=== PATIENT | female | born 1985 | race Caucasian/White ===

== ENCOUNTER 2017-03-16 08:28 | Emergency (ER) | payer OTHER ==
[2017-03-16 08:30] VITALS: BP 113/76
[2017-03-16] MEDS ORDERED: DEXAMETHASONE SOD PHOS 10 MG/ML VIAL PO ONE (09:15)
[2017-03-16] MEDS ORDERED: AMOX1TAB11 PO (09:27)
--- NOTE | 2017-03-16 09:28 | PHYS DOC ---
Past History Past Medical History: No Pertinent History Additional Past Surgical Histo: wisdom teeth Smoking: Non-smoker Alcohol Use: Occasionally Drug Use: None Adult General Chief Complaint Chief Complaint: SORE THROAT HPI HPI She is a pleasant 31-year-old otherwise healthy female with no major medical problems who presents with a sore throat for 3 days. Patient says that the sore throats gotten progressively worse right greater than left with no cough, subjective fevers and chills at home and body aches. Patient missed a sick contacts in the general public but no travel outside the country, no snuffbox, no change in voice, no neck stiffness. Patient denies any rash, headache, chest pain, shortness of breath or abdominal pain. Patient also denies any history of STDs or recent antibiotic use. Review of Systems Review of Systems Constitutional: She has had subjective fevers and chills but nothing more Eyes: Denies change in visual acuity, redness, or eye pain [] HENT: Denies nasal congestion patient does have a sore throat without change in voice Respiratory: Denies cough or shortness of breath [] Cardiovascular: No additional information not addressed in HPI [] GI: Denies abdominal pain, nausea, vomiting, bloody stools or diarrhea [] : Denies dysuria or hematuria [] Musculoskeletal: Denies back pain or joint pain [] Integument: Denies rash or skin lesions [] Neurologic: Denies headache, focal weakness or sensory changes [] Endocrine: Denies polyuria or polydipsia [] All other systems were reviewed and found to be within normal limits, except as documented in this note. Current Medications Current Medications Current Medications Medications (Trade) Dose Ordered Sig/Han Start Time Stop Time Status Last Admin Dose Admin Dexamethasone Sodium Phosphate (Decadron) 10 mg 1X ONCE 03/16/17 09:15 03/16/17 09:16 DC 03/16/17 09:14 10 MG Allergies Allergies Allergies Coded Allergies Type Severity Reaction Last Updated Verified No Known Drug Allergies 03/16/17 No Physical Exam Physical Exam Other vital signs recorded on the chart within normal limits. Constitutional: Well developed, well nourished, no acute distress, non-toxic appearance. [] HENT: Normocephalic, atraumatic, bilateral external ears normal, oropharynx moist, oral exudates noted on the right tonsillar pillar with mild hypertrophy no evidence of abscess or uvular edema, nose normal. [] Eyes: PERRLA, EOMI, conjunctiva normal, no discharge. [] Neck: Normal range of motion, no tenderness, supple, no stridor. Patient does have anterior cervical lymphadenopathy [] Cardiovascular:Heart rate regular rhythm, no murmur [] Lungs & Thorax: Bilateral breath sounds clear to auscultation [] Skin: Warm, dry, no erythema, no rash. [] Neurologic: Alert and oriented X 3, normal motor function, normal sensory function, no focal deficits noted. [] Psychologic: Affect normal, judgement normal, mood normal. [] EKG EKG [] Radiology/Procedures Radiology/Procedures [] Course & Med Decision Making Course & Med Decision Making Pertinent Labs and Imaging studies reviewed. (See chart for details) []Patient's rapid strep test is negative ,Centor criteria: The Centor criteria are a widely used and accepted clinical decision tool These criteria are: Tonsillar exudates Tender anterior cervical adenopathy Fever by history Absence of cough The likelihood of having GAS increases with the number of Centor criteria. However, the Centor criteria are most useful in identifying patients for whom neither microbiologic tests nor antimicrobial therapy are necessary. Patients with fewer than three (0 to 2) Centor criteria are unlikely to have GAS and, in general, should not receive either antibiotic treatment or diagnostic testing. Chest patient has a 3 of 4 of the center criteria I will treat her empirically with antibiotics despite having a negative rapid strep test. Patient has no evidence of abscess peritonsillar abscess, retropharyngeal abscess, Doni angina or uvular edema. She'll be placed on a course of amoxicillin and clavulanic acid and encouraged to use [id number] medications like Tylenol or Motrin discharge: I've spoken with the patient and/or caregivers. I've explained the patient's condition, diagnosis and treatment plan based on information available to me at this time. I've answered the patient's and/or caregivers questions and addressed any concerns. The patient and/or caregivers have a good understanding the patient's diagnosis, condition and treatment plan as can be expected at this point. Vital signs have been stabilized. The patient's condition is stable for discharge from the emergency department. The patient will pursue further outpatient evaluation with her primary care provider or other designated consulting physician as outlined in the discharge instructions. Patient and/or caregivers are agreeable to this plan of care and follow-up instructions have been explained in detail. The patient and/or caregivers have received these instructions in written format and expressed understanding of these discharge instructions. The patient and her caregivers are aware that if any significant change in condition or worsening of symptoms should prompt him to immediately return to this of the closest emergency department. If an emergent department is not readily available I would encourage him to call 911. Claudio Disclaimer Dragon Disclaimer This electronic medical record was generated, in whole or in part, using a voice recognition dictation system. Departure Departure: Impression: Primary Impression: Pharyngitis Disposition: HOME, SELF-CARE Condition: STABLE Referrals: NON,STAFF (PCP) Patient Instructions: Viral and Bacterial Pharyngitis Additional Instructions: please return for any new or increased symptoms. Please follow up in the next 24 hours with your PCP if your symptoms are not improved. Please return if you have any questions or concerns discharge: I've spoken with the patient and/or caregivers. I've explained the patient's condition, diagnosis and treatment plan based on information available to me at this time. I've answered the patient's and/or caregivers questions and addressed any concerns. The patient and/or caregivers have a good understanding the patient's diagnosis, condition and treatment plan as can be expected at this point. Vital signs have been stabilized. The patient's condition is stable for discharge from the emergency department. The patient will pursue further outpatient evaluation with her primary care provider or other designated consulting physician as outlined in the discharge instructions. Patient and/or caregivers are agreeable to this plan of care and follow-up instructions have been explained in detail. The patient and/or caregivers have received these instructions in written format and expressed understanding of these discharge instructions. The patient and her caregivers are aware that if any significant change in condition or worsening of symptoms should prompt him to immediately return to this of the closest emergency department. If an emergent department is not readily available I would encourage him to call 911. Scripts Amoxicillin/Potassium Clav (AMOX TR-K CLV 875-125 MG TAB) 1 Each Tablet 1 TAB PO BID, #20 TAB Prov: KASIA NELSON MD 03/16/17 KASIA NELSON MD Mar 16, 2017 09:28
[2017-03-16 09:42] LABS: INFLUENZA A PATIENT NEGATIVE (NEGATIVE)
[2017-03-16 09:43] LABS: INFLUENZA B PATIENT NEGATIVE (NEGATIVE)
== END 2017-03-16 09:32 | disposition home or self-care (01) ==
LOC: ER 08:28
DX: J02.9 Acute pharyngitis, unspecified (principal); M79.1 Myalgia
CPT/HCPCS: 87070; 87804; 87880; 99284; J1100